=== PATIENT | male | born 1985 | race Two or more races ===

== ENCOUNTER 2022-08-05 08:02 | Outpatient (CLI) | payer OTHER | END 2022-08-05 12:26 | disposition home or self-care (01) | LOC: LAB 08:02 | PROVIDERS: ATTEND Family Medicine Geriatric Medicine | DX: Z20.818 Contact with and (suspected) exposure to other bacterial communicable diseases (principal); Z20.828 Contact with and (suspected) exposure to other viral communicable diseases ==